=== PATIENT | female | born 1975 | race African-American/Black ===

== ENCOUNTER 2016-12-25 23:02 | Emergency (ER) | payer SELFPAY ==
[~2016-12-25] VITALS: Ht 167.6 cm; Wt 140.0 kg
[~2016-12-25 23:02] MED LIST: SPRI28TA PO; SULF1TAB23 PO
[2016-12-25 23:04] VITALS: BP 141/98; PULSE 91; RESP 16; TEMP 98.4; O2SAT 97
[2016-12-26] MEDS ORDERED: diphenhydrAMINE HCL 50 MG/ML VIAL IV PUSH ONE (01:00)
[2016-12-26] MEDS ORDERED: KETOROLAC TROMETHAMINE 30 MG/ML (IVP) VIAL IV PUSH ONE (01:00)
[2016-12-26] MEDS ORDERED: PROCHLORPERAZINE INJ 10 MG/2 ML VIAL IV PUSH ONE (01:00)
[2016-12-26 01:30] LABS: BACTERIA, URINE RARE /hpf; BLOOD, URINE NEG (NEG); COMMENT (UR) CULTURE INDICATED; CULTURE IF INDICATED CULTURE INDICATED; GLUCOSE,URINE NEG (NEG); HYALINE CAST, URINE 3 /lpf (RARE); KETONE, URINE NEG (NEG); MUCUS URINE FEW /lpf (OCC); NITRITE,URINE POS (NEG); PH, URINE 5.5 (5.0-8.5); SQUAMOUS EPITHELIAL CELL URINE 1 /hpf (0-5); URINE COLOR YELLOW (YELLW/STRAW)
[2016-12-26] MEDS ORDERED: METOCLOPRAMIDE HCL 10 MG/2 ML VIAL IV PUSH ONE (01:30)
[2016-12-26] MEDS ORDERED: MACR100C2 PO (01:35)
--- NOTE | 2016-12-26 01:40 | PD ---
HPI Chief Complaint: Headache Time Seen by Provider: 00:51 Travel History International Travel<30 days: No Contact w/Intl Traveler<30days: No Traveled to known affect area: No History of Present Illness HPI 41-year-old black female presents to emergency department with complains of headache 3 days. She states that she has taken Excedrin with only temporary relief. She states the headache is frontal in nature. She has had some associated nausea but no vomiting. No fever chills. No sinus congestion or pain. She denies any numbness, tingling or weakness. No history of migraines. Patient does gone state that she has had urinary symptoms now for over a month. She was seen by her doctor last week and had a urine done which did not show any obvious infection. She does report followed her in her urine, increased urinary frequency and some dysuria. She denies any vaginal complaints. No abdominal pain. Patient states her pain is a 6/10. Sharp stabbing in nature. No alleviating factor is Excedrin. No exacerbating activity PFSH Past Medical History Anemia: Yes Autoimmune Disease: No Cancer: No Cardiovascular Problems: No Chemotherapy: No Diabetes: No Diminished Hearing: No Endocrine: No Genitourinary: No Hypertension: Yes Immune Disorder: No Medical other: Yes (fibroids) Musculoskeletal: No Neurologic: No Psychiatric: No Reproductive: No Respiratory: No Immunizations Current: No Radiation Therapy: No Sickle Cell Disease: No Thyroid Disease: No Tetanus Vaccination: Unknown Influenza Vaccination: No ?: Not LMP: 12/19/2016 Menopausal: No : 6 Para: 5 Miscarriage: 1 Past Surgical History Surgical History: No Previous Surgery AICD: No Arteriovenous Shunt: No Insulin Pump: No Joint Replacement: No Pacemaker: No Other Surgery: No Social History Alcohol Use: No Tobacco Use: No Substance Use: No Allergies-Medications (Allergen,Severity, Reaction): Coded Allergies: No Known Allergies (Verified , 12/26/16) Reported Meds & Prescriptions Reported Meds & Active Scripts Active Macrobid (Nitrofurantoin Monoh/Nitrofur Macro) 100 Mg Cap 100 Mg PO BID 10 Days Sprintec 28 (Norgestimate-Ethinyl Estradiol) 0.25-35 mg-Mcg Tab 1 Tab PO DAILY Review of Systems Except as stated in HPI: all other systems reviewed are Neg Physical Exam Narrative GENERAL: Well-developed, well-nourished in no apparent distress. Nontoxic appearing. HEAD: Normocephalic, atraumatic. EYES: Pupils equal round and reactive. Extraocular motions intact. No scleral icterus. No injection or drainage. ENT: Nose clear. Throat without erythema, tonsillar hypertrophy or exudate. Uvula midline. Airway patent. NECK: Trachea midline. Supple, nontender, moves head freely. No central bony tenderness or spasm. CARDIOVASCULAR: Regular rate and rhythm without murmurs, gallops, or rubs. RESPIRATORY: Clear to auscultation. Breath sounds equal bilaterally. No wheezes , rales, or rhonchi. GASTROINTESTINAL: Abdomen soft, non-tender, nondistended. No hepato-splenomegaly , or palpable masses. No guarding. EXTREMITIES: No clubbing, cyanosis, or edema. No joint tenderness. BACK: Nontender without deformity. No flank tenderness. NEUROLOGICAL: Awake, alert and oriented x 3 .Cranial nerves grossly intact. Motor and sensory grossly within normal limits. Normal speech. Data Data Last Documented VS Vital Signs Date Time Temp Pulse Resp B/P (MAP) Pulse Ox O2 Delivery O2 Flow Rate FiO2 12/25/16 23:04 98.4 91 16 141/98 (112) 97 Room Air Orders Orders Urinalysis - C+S If Indicated (12/26/16 00:59) Gc And Chlamydia Pcr (12/26/16 00:59) Iv Access Insert/Monitor (12/26/16 00:59) Diphenhydramine Inj (Benadryl Inj) (12/26/16 01:00) Prochlorperazine Inj (Compazine Inj) (12/26/16 01:00) Ketorolac Inj (Toradol Inj) (12/26/16 01:00) Metoclopramide Inj (Reglan Inj) (12/26/16 01:30) Urine Culture (12/26/16 01:11) Nitrofurantoin Monohyd Macrocr (Macrobid (12/26/16 01:45) Labs Laboratory Tests Test 12/26/16 01:11 Urine Color YELLOW Urine Turbidity HAZY Urine pH 5.5 Urine Specific [place] 1.023 Urine Protein NEG mg/dL Urine Glucose (UA) NEG mg/dL Urine Ketones NEG mg/dL Urine Occult Blood NEG Urine Nitrite POS Urine Bilirubin NEG Urine Urobilinogen LESS THAN 2.0 MG/DL Urine Leukocyte Esterase SMALL Urine RBC 2 /hpf Urine WBC 3 /hpf Urine Squamous Epithelial Cells 1 /hpf Urine Bacteria RARE /hpf Urine Hyaline Casts 3 /lpf Urine Mucus FEW /lpf Microscopic Urinalysis Comment CULTURE INDICATED MDM Medical Decision Making Medical Screen Exam Complete: Yes Emergency Medical Condition: Yes Medical Record Reviewed: Yes Differential Diagnosis Differential diagnoses: Cephalgia, migraine, sinus, UTI Narrative Course IV access is obtained. Patient's given Benadryl 50 mg IV, Toradol 30 mg IV, and Reglan 10 mg IV. Patient also given Macrobid 100 mg by mouth. Urine reveals positive for UTI. Patient's headache is much improved. She is medically stable for discharge. This is cephalgia, UTI Diagnosis Primary Impression: Cephalgia Qualified Codes: R51 - Headache Additional Impression: UTI (urinary tract infection) Qualified Codes: N30.00 - Acute cystitis without hematuria Patient Instructions: General Instructions Additional Instructions: Rest. Increase fluids. Macrobid. Follow-up with your medical doctor on Tuesday for recheck. Return to the ER for emergencies. Med/Other Pt SpecificInfo: Prescription(s) given Scripts Nitrofurantoin Monohydrate Macrocrystals (Macrobid) 100 Mg Cap 100 MG PO BID for Infection for 10 Days, #20 CAP 0 Refills Prov: Collin Contreras MD 12/26/16 Disposition: 01 DISCHARGE HOME Condition: Stable Lars Verduzco Dec 26, 2016 01:40
[2016-12-26] MEDS ORDERED: NITROFURANTOIN MONOHYD MACROCR 100 MG CAP PO ONE (01:45)
[2016-12-26 04:08] LABS: CHLAMYDIA PCR NOT DETECTED (NOT DETECT); NEISSERIA PCR NOT DETECTED (NOT DETECT)
== END 2016-12-26 02:17 | disposition home or self-care (01) ==
LOC: NEPD 23:02
DX: R51 Headache (principal); D64.9 Anemia, unspecified; I10 Essential (primary) hypertension; N30.00 Acute cystitis without hematuria
CPT/HCPCS: 81001; 87077; 87086; 87186; 87491; 87591; 96374; 96375; 99284; J1200; J1885; J2765

== ENCOUNTER 2017-12-15 07:25 | Observation (INO) ==
[2017-12-15] MEDS ORDERED: ceFAZolin 2 GM IV; once IV.SIG SCH (08:15)
[2017-12-15 08:24] LABS: Baso # (Auto) 0.1 th/mm3 (0.0-0.2); Baso % (Auto) 1.2 % (0.0-2.0); Eos # (Auto) 0.2 th/mm3 (0.0-0.4); Hematocrit 37.9 % (35.0-46.0); Hemoglobin 12.5 gm/dL (11.6-15.3); Lymph # (Auto) 2.8 th/mm3 (1.0-4.8); Lymph % (Auto) 39.1 % (9.0-44.0); Mean Corpuscular Hemoglobin 27.9 pg (27.0-34.0); Mean Corpuscular Volume 84.6 fL (80.0-100.0); Mean Platelet Volume 7.5 fL (7.0-11.0); Mono # (Auto) 0.3 th/mm3 (0.0-0.9); Mono % (Auto) 4.2 % (0.0-8.0); Neut # (Auto) 3.8 th/mm3 (1.8-7.7); Neut % (Auto) 52.5 % (16.0-70.0); Platelet Count 242 th/mm3 (150-450); Red Blood Count 4.48 mil/mm3 (4.00-5.30); Red Cell Distribution Width 15.4 % (11.6-17.2); White Blood Count 7.2 th/mm3 (4.0-11.0)
[2017-12-15 08:36] LABS: Activated Partial Thrombo Time 27.5 sec (24.3-30.1)
[2017-12-15 08:44] LABS: Anion Gap 8 meq/L (5-15); Blood Urea Nitrogen 10 mg/dL (7-18); Calcium 8.6 mg/dL (8.5-10.1); Carbon Dioxide 26.9 meq/L (21.0-32.0); Chloride 105 meq/L (98-107); Glomerular Filtration Rate Greater Than 89 mL/min (>89); Glucose,Random 100 mg/dL (74-106); Sodium 140 meq/L (136-145)
[2017-12-15] MEDS ORDERED: fentaNYL Citrate Inj 250 MCG/5 ML Ampul ONE (11:12)
[2017-12-15] MEDS: Sod Chloride 0.9% Inj 1,000 ML IV.SIG SCH (11:13)
[2017-12-15] MEDS: Ketorolac Inj 30 MG/ML (IVP) Vial IV.PUSH SCH ×2 (11:14→11:47)
[2017-12-15] MEDS ORDERED: Morphine Inj 4 MG/ML Vial IV.SIG ONE (13:49)
[2017-12-15] MEDS ORDERED: Naloxone Inj 0.4 MG/ML Vial IV.PUSH PRN (13:49)
--- NOTE | 2017-12-15 14:02 | P.HPIM ---
History of Present Illness Primary Care Physician: UNKNOWN History of Present Illness: This patient is an obese 42-year-old -[place]in[place] female. She was found to have uterine fibroids many years ago however began having significant symptoms over the past couple of years. Her symptoms continue to get worse and a scheduled uterine artery embolization was scheduled for today. The patient underwent the procedure today and I was called to evaluate the patient and she will be placed in observation for today. She denies having any chest pain, no shortness, of breath no diarrhea. She does complain of some abdominal pain which is tolerable with IV morphine. Past medical history the patient denies any significant past medical history Family history significant for lymphoma in her father, diabetes in her mother and grandmother. Surgical history the patient denies any history of any surgeries. Allergies no known drug allergies Medications the patient states she takes iron tablets, control pills, and a multivitamin. Review of Systems All other systems reviewed negative except as stated in HPI PMFSH - History History Provided By: Patient - Medical / Surgical Hx Neg / Unobtainable Surgical History: No Previous Surgery - Medical History Medical History: Medical History (Last Reviewed 12/15/17 @ 13:54 by Rui Alonso MD) Hypertension Uterine fibroid - Tobacco History Second Hand Smoke Exposure: No Smoking Status: Never smoker - Alcohol History How Often Do You Have a Drink Containing Alcohol: Never - Substance Use History Substance History: No History of Abuse - Travel History Recent Travel in the [place] Within the Last 8 Weeks: No Recent Travel Out of the Country Within the Last 8 Weeks: No Medications and Allergies Active Medications: Active Medications Diazepam (Valium) 10 mg PO TUBE OPERATOR [facility] Stop: 12/18/17 08:14 Last Admin: 12/15/17 11:47 Dose: 10 mg Sodium Chloride (Ns Inj) 1,000 mls @ 30 mls/hr IV.SIG .Q24H [facility] Last Admin: 12/15/17 11:13 Dose: 30 mls/hr Cefazolin Sodium/Dextrose (Ancef 2 Gm Premix Inj) 2 gm in 50 mls @ 100 mls/hr IV.SIG TUBE OPERATOR [facility] Stop: 12/18/17 08:14 Last Infusion: 12/15/17 11:48 Dose: Infused Ketorolac Tromethamine (Toradol Inj) 30 mg IV.PUSH TUBE OPERATOR [facility] Stop: 12/18/17 08:14 Last Admin: 12/15/17 11:47 Dose: 30 mg Ondansetron HCl (Zofran Inj) 4 mg IV.PUSH TUBE OPERATOR [facility] Stop: 12/18/17 08:14 Last Admin: 12/15/17 11:47 Dose: 4 mg Allergies Allergy/AdvReac Type Severity Reaction Status Date / Time No Known Allergies AdvReac Intermediate Fatigue Uncoded 12/15/17 07:48 Home Medications Medication Instructions Recorded Confirmed Type ferrous sulfate [iron] 325 mg PO DAILY 12/15/17 12/15/17 History multivitamin 1 tab PO DAILY 12/15/17 12/15/17 History norgestimate-ethinyl estradiol 1 tab PO DAILY 12/15/17 12/15/17 History [Sprintec (28)] Exam Vital signs: Vital Signs 12/15/17 07:40 12/15/17 13:25 Temperature 98.0 F 98.0 F Pulse Rate 82 50 L Respiratory Rate 20 18 Blood Pressure 130/93 H 158/100 H Pulse Oximetry 95 94 L Intake & Output 12/14/17 12/15/17 12/15/17 18:59 06:59 18:59 Intake Total 50 / 50 Balance 50 / 50 Weight 147.871 kg Intake: IV 50 / 50 Ancef 2 GM Premix Inj 2 gm In 50 / 50 50 ml @ 100 mls/hr IV.SIG TUBE OPERATOR [facility] Rx#:[id number] Other: Weight On Admission 148.325 kg Narrative: General patient appears to be in mild distress, complains of abdominal lower abdominal pain. HEENT extraocular movements are intact, clear oropharyngeal mucosa, no JVD Cardiovascular S1-S2 audible, RRR, no murmurs rubs or gallops Respiratory clear to auscultation bilaterally Abdomen soft, obese, patient complains of abdominal pain in the lower quadrants however is tolerable after she was given IV morphine. Extremities patient has 2+ distal pulses in her upper and lower extremities. Neuro patient moves all 4 extremities sensation is intact bilaterally. Results - Labs CBC & Chem 7: 12/15/17 08:00 12/15/17 08:00 Labs: Short CBC 12/15/17 Range/Units 08:00 WBC 7.2 (4.0-11.0) th/mm3 Hgb 12.5 (11.6-15.3) gm/dL Hct 37.9 (35.0-46.0) % Plt Count 242 (150-450) th/mm3 [facility] 12/15/17 08:00 Sodium 140 Potassium 4.0 Chloride 105 Carbon Dioxide 26.9 BUN 10 Creatinine 0.70 Calcium 8.6 Caprini VTE Risk Assessment Caprini VTE Risk Assessment: Moderate/High Risk (score >= 2) VTE Pharmacological Exception Reason: Documented Caprini Risk Assessment Model: Point Value = 1 Point Value = 2 Point Value = 3 Point Value = 5 Age 41-60 Minor surgery BMI > 25 kg/m2 Swollen legs Varicose veins or History of unexplained or recurrent spontaneous Oral contraceptives or hormone replacement Sepsis (< 1 month) Serious lung disease, including pneumonia (< 1 month) Abnormal pulmonary function Acute myocardial infarction Congestive heart failure (< 1 month) History of inflammatory bowel disease Medical patient at bed rest Age 61-74 Arthroscopic surgery Major open surgery (> 45 min) Laparoscopic surgery (> 45 min) Malignancy Confined to bed (> 72 hours) Immobilizing plaster cast Central venous access Age >= 75 History of VTE Family history of VTE Factor V Leiden Prothrombin [id number] Lupus anticoagulant Anticardiolipin antibodies Elevated serum homocysteine Heparin-induced thrombocytopenia Other congenital or acquired thrombophilia Stroke (< 1 month) Elective arthroplasty Hip, pelvis, or leg fracture Acute spinal cord injury (< 1 month) Prophylaxis Regimen: Total Risk Factor Score Risk Level Prophylaxis Regimen 0-1 Low Early ambulation 2 Moderate Order ONE of the following: *Sequential Compression Device (SCD) *Heparin 5000 units SQ BID 3-4 Higher Order ONE of the following medications: *Heparin 5000 units SQ TID *Enoxaparin/Lovenox 40 mg SQ daily (WT < 150 kg, CrCl > 30 mL/min) *Enoxaparin/Lovenox 30 mg SQ daily (WT < 150 kg, CrCl > 10-29 mL/min) *Enoxaparin/Lovenox 30 mg SQ BID (WT < 150 kg, CrCl > 30 mL/min) AND/OR *Sequential Compression Device (SCD) 5 or more Highest Order ONE of the following medications: *Heparin 5000 units SQ TID (Preferred with Epidurals) *Enoxaparin/Lovenox 40 mg SQ daily (WT < 150 kg, CrCl > 30 mL/min) *Enoxaparin/Lovenox 30 mg SQ daily (WT < 150 kg, CrCl > 10-29 mL/min) *Enoxaparin/Lovenox 30 mg SQ BID (WT < 150 kg, CrCl > 30 mL/min) AND *Sequential Compression Device (SCD) Assessment and Plan - Plan This patient is an obese 42-year-old female with a history of uterine fibroids. The patient underwent uterine artery embolization today as an elective procedure. She is now being admitted for observation after the procedure. 1. Status post uterine artery embolization. The patient tolerated the procedure well. She currently complains of some abdominal pain however was given IV morphine and her symptoms are tolerable. An order has been placed for IV fluids, IV Zofran, DESPATCH CLERK morphine pump, and Rocephin. Her blood pressure is slightly elevated likely due to current pain. If her blood pressure continues to remain elevated she may need antihypertensives. We will continue to monitor the patient and follow-up a.m. labs. Once the patient's pain improves he can be started on a diet. Currently there is no procedure note available. I will follow up and continue to look out for the procedure note from today. No DVT prophylaxis for today as the patient just finished with a procedure. H&P: Quality - VTE Deep Vein Thrombosis/Pulmonary Embolism Present on Admission: No
[2017-12-15] MEDS: Morphine Inj 30 MG/30 ML PCA.VIAL PCA PRN (14:53)
[2017-12-15] MEDS: PCA - Total MG Morphine Delevered per Shift MISCELLANE SCH (16:02)
--- NOTE | 2017-12-15 16:30 | P.RAD ---
Post Procedure Progress Note - Pre Procedure Diagnosis (1) Uterine fibroid - Post Procedure Diagnosis (1) Uterine fibroid - Procedure Information Supervising Radiologist: Maximo Motley MD Anesthesia: Conscious Sedation - Plan of Activity Patient to Unit: Nursing Unit Patient Condition: Good See PACS Report for procedural detail/treatment. Vascular - Arterial Procedure bilateral Abdominal Procedure: Embolization (bilateral uterine artery embolization with pva and gelfoam)
--- NOTE | 2017-12-15 21:36 | IR ---
EXAM DATE: 12/15/2017 12:00 AM EDT AGE/SEX: 42 years / Female INDICATIONS: Patient presents with menstrual pain with menorrhagia in need of a Uterine Artery Embol ization. CLINICAL DATA: This is the patient's initial encounter. Patient reports that signs and symptoms have been present for > 1 year and indicates a pain score of 5/10. MEDICAL/SURGICAL HISTORY: Anemia. None. COMPARISON: No prior exams available for comparison. FLUORO TIME (min): 24.09 IMAGE SERIES: 23 ACCESS SITE: Right femoral artery SEDATION TIME (min): 75 CONTRAST (cc): 115 Visipaque (iodixanol) MEDICATION(S): 5mg midazolam (Versed) IV 250mcg fentanyl (Sublimaze) IV 200 Nitroglycerine IV DEVICE(S): Left uterine artery PVA Left uterine artery Gelfoam Right uterine artery PVA Right uterine artery Gelfoam . . PROCEDURE: 1. Ultrasound-guided puncture of the right common femoral artery. 2. Left internal iliac artery arteriogram. 3. Left uterine artery arteriogram. 4. Embolization of the left uterine artery. 5. Right internal iliac artery arteriogram. 6. Right uterine artery arteriogram. 7. Embolization of the right uterine artery. 8. Conscious sedation with continuous EKG and oximetry monitoring. The risks, benefits and alternatives to the procedure were explained and verbal and written consent w as obtained. The site was prepped in sterile fashion. Full sterile technique was used, including ca p, mask, sterile gloves and gown and a large sterile sheet. Hand hygiene and 2% chlorhexidine and/or betadine/alcohol prep was utilized per protocol for cutaneous antisepsis. Sterile gel and sterile p robe cover were utilized for ultrasound guidance. The skin and subcutaneous tissues were infiltrated with local anesthetic solution. With ultrasound and fluoroscopic guidance the right femoral artery was punctured. An Omni Flush cath eter was placed over aortic bifurcation into the left internal iliac artery where imaging was perform ed to identify the uterine artery. The uterine artery was subsequent catheterized and angiography wa s performed demonstrating multiple feeding vessels supplying the uterine fibroids. Embolization was performed using the prescribed size of polyvinyl alcohol and Gelfoam slurry to complete stasis. Foll owup angiograph y from the internal iliac vessel demonstrates complete stasis and no antegrade flow within the left u terine artery. An Omni Flush catheter was then used to select the ipsilateral right internal iliac artery where imag ing was performed to identify the uterine artery. The uterine artery was subsequently catheterized a nd angiography was performed demonstrating multiple feeding vessels supplying the uterine fibroids. Embolization was performed using the prescribed dose of polyvinyl alcohol and Gelfoam slurry to compl ete stasis. Followup angiography from the internal iliac vessel demonstrates complete stasis and no antegrade flow within the left uterine artery. Conscious sedation was performed with the prescribed dosages and duration as above in the presence of an independent trained radiology nurse to assist in the monitoring of the patient. EKG and oximetry remained stable throughout the procedure. The patient tolerated the procedure well and there were n o complications. The patient was sent to post anesthesia recovery in stable condition. CONCLUSION: 1. Uncomplicated uterine artery embolization as above. Electronically signed by: Maximo Motley MD 12/15/2017 9:34 PM EDT
[2017-12-16] MEDS: PCA - Total MG Morphine Delevered per Shift MISCELLANE SCH ×3 (04:03→15:30)
[2017-12-16] MEDS: Sod Chloride 0.9% Inj 1,000 ML IV.SIG SCH (07:44)
[2017-12-16] MEDS: Morphine Inj 30 MG/30 ML PCA.VIAL PCA PRN (07:45)
[2017-12-16] MEDS ORDERED: Morphine Sulfate Inj 2 MG/ML Vial IV.PUSH PRN (18:57)
--- NOTE | 2017-12-16 19:00 | P.PNIM ---
Subjective Interval history: Patient sitting at the bedside with a bag in front of her. She says she is nauseous and was vomiting last night. She also has complaint of some abdominal pain that is tolerable with morphine. Physical Exam Vital signs: Vital Signs 12/15/17 20:00 12/15/17 23:57 12/16/17 04:18 Temperature 98.8 F 97.6 F 97.7 F Pulse Rate 56 L 78 79 Respiratory Rate 20 16 16 Blood Pressure 130/64 146/78 H 149/96 H Pulse Oximetry 97 96 96 12/16/17 08:00 12/16/17 12:00 12/16/17 16:00 Temperature 98 F 97.2 F L 97.6 F Pulse Rate 86 72 87 Respiratory Rate 17 17 17 Blood Pressure 135/79 136/74 132/75 Pulse Oximetry 98 96 97 Intake & Output 12/15/17 12/16/17 12/16/17 18:59 06:59 18:59 Intake Total 50 / 50 240 / 240 1942 / 1942 Output Total 980 / 980 250 / 250 Balance 50 / 50 -740 / -740 1692 / 1692 Weight 147.871 kg 147 kg Intake: IV 50 / 50 1000 / 1000 NS Inj 1,000 ML @ 30 mls/hr IV. 1000 / 1000 SIG .Q24H [facility] Rx#:[id number] Ancef 2 GM Premix Inj 2 gm In 50 / 50 50 ml @ 100 mls/hr IV.SIG [facility] Rx#:[id number] Oral 240 / 240 942 / 942 Output: Urine 250 / 250 Emesis 400 / 400 Urine Amount (Catheter) 580 / 580 Indwelling Urethral Catheter 580 / 580 Other: # Voids 1 Date of Last Bowel Movement 12/13/17 12/13/17 # Emeses 3 Weight On Admission 148.325 kg Narrative: General patient appears to be in mild distress, complains of nausea and vomiting this morning. HEENT extraocular movements are intact, clear oropharyngeal mucosa, no JVD Cardiovascular S1-S2 audible, RRR, no murmurs rubs or gallops Respiratory clear to auscultation bilaterally Abdomen soft, obese, patient complains of abdominal pain that is diffuse however improved with morphine. Extremities patient has 2+ distal pulses in her upper and lower extremities. Neuro patient moves all 4 extremities sensation is intact bilaterally. - Urinary Catheter Management Indwelling Urethral Catheter Cath placed during this visit: yes, but has since been removed by the nurse Reason for continuing: Decision to DC catheter Insertion date: 12/15/17 Insertion time: 11:30 Removal date: 12/16/17 Removal time: 06:00 Results - Labs CBC & Chem 7: 12/15/17 08:00 12/15/17 08:00 - Imaging Impressions Embolization, Transcatheter 12/15/17 00:00 CONCLUSION: 1. Uncomplicated uterine artery embolization as above. Assessment and Plan - Plan This patient is an obese 42-year-old female with a history of uterine fibroids. The patient underwent uterine artery embolization today as an elective procedure. She is now being admitted for observation after the procedure. 1. Status post uterine artery embolization. The patient tolerated the procedure well. She currently complains of some abdominal pain however was given IV morphine and her symptoms are tolerable. Patient was not nauseous this morning and given IV Zofran. The IV Zofran was helping this morning. The patient was advised to follow a in-hospital diet as last night she was found eating [employer] chicken that her family brought in. This may have contributed to the patient's current complaints of nausea and vomiting. CATALYTIC CONVERTER OPERATOR pump has been discontinued and the patient will be switched over to p.o. Jadwin and IV morphine as needed for breakthrough pain. Continue IV fluids Systolic blood pressures currently in the 130s. I believe her hypertension yesterday was likely due to pain. We will continue to monitor the patient and follow-up a.m. labs. Once the patient's symptoms of nausea, vomiting, and pain improve we will prepare plans for discharge. Patient is ambulatory, no pharmacotherapy for DVT prophylaxis.
[2017-12-17] MEDS: PCA - Total MG Morphine Delevered per Shift MISCELLANE SCH ×3 (00:27→14:41)
[2017-12-17] MEDS: Sod Chloride 0.9% Inj 1,000 ML IV.SIG SCH ×2 (04:33→08:57)
[2017-12-17 08:19] VITALS: RESP 17
[2017-12-17 09:29] LABS: Baso % (Auto) 0.3 % (0.0-2.0); Eos # (Auto) 0.2 th/mm3 (0.0-0.4); Eos % (Auto) 1.9 % (0.0-4.0); Hematocrit 36.5 % (35.0-46.0); Lymph # (Auto) 2.1 th/mm3 (1.0-4.8); Lymph % (Auto) 22.9 % (9.0-44.0); Mean Corpuscular HGB Conc 32.9 % (32.0-36.0); Mean Corpuscular Hemoglobin 28.3 pg (27.0-34.0); Mean Platelet Volume 7.6 fL (7.0-11.0); Mono # (Auto) 0.3 th/mm3 (0.0-0.9); Neut # (Auto) 6.5 th/mm3 (1.8-7.7); Neut % (Auto) 71.9 % (16.0-70.0); Platelet Count 231 th/mm3 (150-450); Red Blood Count 4.24 mil/mm3 (4.00-5.30); Red Cell Distribution Width 15.4 % (11.6-17.2); White Blood Count 9.1 th/mm3 (4.0-11.0)
[2017-12-17 09:59] LABS: Anion Gap 10 meq/L (5-15); Blood Urea Nitrogen 9 mg/dL (7-18); Calcium 8.3 mg/dL (8.5-10.1); Carbon Dioxide 24.2 meq/L (21.0-32.0); Chloride 105 meq/L (98-107); Glomerular Filtration Rate Greater Than 89 mL/min (>89); Glucose,Random 183 mg/dL (74-106); Magnesium 1.9 mg/dL (1.5-2.5); Potassium 3.9 meq/L (3.5-5.1); Sodium 139 meq/L (136-145)
[2017-12-17 16:07] VITALS: BP 156/84; PULSE 87; TEMP 98; O2SAT 97
--- NOTE | 2017-12-17 16:49 | P.DS ---
Date of admission: 12/16/17 10:13 Primary care physician: UNKNOWN Brief History from admission: This patient is an obese 42-year-old -[place] female. She was found to have uterine fibroids many years ago however began having significant symptoms over the past couple of years. Her symptoms continue to get worse and a scheduled uterine artery embolization was scheduled for today. The patient underwent the procedure today and I was called to evaluate the patient and she will be placed in observation for today. She denies having any chest pain, no shortness, of breath no diarrhea. She does complain of some abdominal pain which is tolerable with IV morphine. Past medical history the patient denies any significant past medical history Family history significant for lymphoma in her father, diabetes in her mother and grandmother. Surgical history the patient denies any history of any surgeries. Allergies no known drug allergies Medications the patient states she takes iron tablets, control pills, and a multivitamin. DS: Medications - Discharge Medications Prescriptions: hydrocodone-acetaminophen 1 tab PO Q6H PRN 3 Days #12 tab PRN Reason: Pain Scale 6 To 10 DS: Summary Hospital Course: This patient is an obese 42-year-old female with a history of uterine fibroids. The patient underwent uterine artery embolization 2 days ago as an elective procedure. 1. Status post uterine artery embolization. The patient tolerated the procedure well. After the procedure the patient was complaining of abdominal pain, nausea, and had a couple episodes of vomiting. She was placed on a LIGHTOUT EXAMINER pump after the procedure and was then transitioned to p.o. pain medications. Her nausea improved and she was started on a p.o. diet. Patient is tolerating a diet well without any complaints. She will be discharged home today with a couple of days of p.o. [place] as needed for pain. She was advised to follow-up with her primary care physician within the next week. A right inguinal suture can be removed during that clinic visit. She was also advised to follow-up with her [facility] physician Dr. Paty Reynolds within the next 2 weeks. She is afebrile, her nausea has improved, her pain has improved and she will be discharged home today. She will be given gauze and materials needed for dressing changes of the surgical site at home. 2. Morbid obesity Patient was counseled on diet and exercise. - Time Spent with Patient Total time spent providing and/or coordinating discharge services: Less than 30 minutes - Quality: VTE Deep Vein Thrombosis/Pulmonary Embolism Present on Admission: No Exam Vital signs: Vital Signs 12/16/17 20:00 12/17/17 00:00 12/17/17 08:00 Temperature 97.9 F 97.3 F L 97.7 F Pulse Rate 92 H 91 H 85 Respiratory Rate 18 18 17 Blood Pressure 124/77 146/75 H 125/65 Pulse Oximetry 98 96 95 12/17/17 12:00 12/17/17 16:00 Temperature 97.9 F 98.0 F Pulse Rate 89 87 Respiratory Rate 17 17 Blood Pressure 166/85 H 156/84 H Pulse Oximetry 96 97 Intake & Output 12/16/17 12/17/17 12/17/17 18:59 06:59 18:59 Intake Total 1942 / 1942 1480 / 1480 Output Total 250 / 250 Balance 1692 / 1692 1480 / 1480 Weight 149.4 kg Intake: IV 1000 / 1000 1000 / 1000 NS Inj 1,000 ML @ 30 mls/hr IV. 1000 / 1000 1000 / 1000 SIG .Q24H VANESA Rx#:[id number] Oral 942 / 942 480 / 480 Output: Urine 250 / 250 Other: # Voids 1 3 Date of Last Bowel Movement 12/13/17 # Bowel Movements 1 Narrative: General patient in no acute distress HEENT extraocular movements are intact, clear oropharyngeal mucosa, no JVD Cardiovascular S1-S2 audible, RRR, no murmurs rubs or gallops Respiratory clear to auscultation bilaterally Abdomen soft, obese, nondistended, normal bowel sounds, bandage to the right inguinal region with minimal soakage. Extremities no edema 2+ distal pulses in bilateral upper and lower extremities Neuro cranial nerves II through XII intact Results Procedures completed during hospitalization: Bilateral uterine artery embolization Labs on day of discharge: Labs from last 24 hours 12/17/17 12/17/17 08:25 08:25 WBC 9.1 RBC 4.24 Hgb 12.0 Hct 36.5 MCV 86.0 MCH 28.3 MCHC 32.9 RDW 15.4 Plt Count 231 MPV 7.6 Neut % (Auto) 71.9 H Lymph % (Auto) 22.9 Wright % (Auto) 3.0 Eos % (Auto) 1.9 Baso % (Auto) 0.3 Neut # (Auto) 6.5 Lymph # (Auto) 2.1 Wright # (Auto) 0.3 Eos # (Auto) 0.2 Baso # (Auto) 0.0 WBC Differential . Differential Comment Auto diff final Sodium 139 Potassium 3.9 Chloride 105 Carbon Dioxide 24.2 Anion Gap 10 BUN 9 Creatinine 0.82 Estimated GFR Greater than 89 Random Glucose 183 H Calcium 8.3 L Magnesium 1.9 - Impressions ITS Impressions Embolization, Transcatheter 12/15/17 00:00 CONCLUSION: 1. Uncomplicated uterine artery embolization as above. Discharge Plan - Discharge Disposition Patient Disposition: Discharge Home - Discharge Condition Condition: Good - Discharge Order Discharge Orders: Discharge Order (Routine); Ordered 12/17/17 Ordered By: Rui Alonso - Physicians Team Primary Care Provider: UNKNOWN, Attending Provider: Rui Alonso Other Providers: Rui Alonso MD - Rxs /Orders / Referrals /Forms Prescriptions: New hydrocodone-acetaminophen 5-325 mg Tablet 1 tab PO Q6H PRN (Reason: Pain Scale 6 To 10) 3 Days Qty: 12 RF: 0 Continue ferrous sulfate [iron] 325 mg (65 mg iron) Tablet 325 mg PO DAILY fluoxetine 40 mg Capsule 40 mg PO DAILY gabapentin [Neurontin] 300 mg Capsule 300 mg PO TID hydroxyzine HCl 25 mg Tablet 25 multivitamin Tablet 1 tab PO DAILY norgestimate-ethinyl estradiol [Sprintec (28)] 0.25-35 mg-mcg Tablet 1 tab PO DAILY pantoprazole [Protonix] 40 mg Tablet,Delayed Release (Dr/Ec) 40 mg PO BID trazodone 50 mg Tablet 250 mg PO DAILY Referrals: UNKNOWN, [Primary Care Provider] - See Instructions - Discharge Instructions Patient Printed Instructions: Hydrocodone/Acetaminophen (By mouth), Uterine Fibroids (GEN), Acute Wound Care (GEN) Additional Instructions: Follow-up with your primary care physician in the next 1 week. She should also follow-up with [facility] in the next week. As per the patient she sees Dr. Paty Reynolds.
== END 2017-12-17 18:24 | disposition home or self-care (01) ==
LOC: HROP 07:25 → N07 07:25 → HRIP 07:27 → N07 15:31
PROVIDERS: ADMIT Hospitalist; ATTEND Hospitalist